=== PATIENT | male | born 1960 | race Caucasian/White ===

== ENCOUNTER 2019-05-05 09:06 | Outpatient (CLI) | payer BC ==
[2019-05-05 09:57] LABS: BASOPHILS % (AUTO) 0.6 %; EOSINOPHILS # (AUTO) 0.1 10^3/uL (0.0-0.7); HGB - HEMOGLOBIN 17.6 g/dL (14.0-18.0); LYMPHOCYTES # (AUTO) 1.6 10^3/uL (1.5-3.5); MEAN CORPUSCULAR HEMOGLOBIN 29.3 pg (27.0-31.0); MEAN CORPUSCULAR HGB CONC 34.1 g/dL (32.0-36.0); MEAN CORPUSCULAR VOLUME 85.9 fL (80.0-94.0); MEAN PLATELET VOLUME 10.9 fL (7.4-11.4); MONOCYTES # (AUTO) 0.4 10^3/uL (0.0-1.0); MONOCYTES % (AUTO) 6.3 %; NEUTROPHILS # (AUTO) 4.1 10^3/uL (1.5-6.6); NEUTROPHILS % (AUTO) 65.6 %; PLT - PLATELET COUNT 172 10^3/uL (130-450); RED BLOOD COUNT 6.01 10^6/uL (4.70-6.10); RED CELL DISTRIBUTION WIDTH 12.8 % (12.0-15.0); WHITE BLOOD COUNT 6.2 x10^3/uL (4.8-10.8)
[2019-05-05 10:17] LABS: CALCIUM 8.9 mg/dL (8.5-10.3); CREATININE 0.7 mg/dL (0.6-1.2)
[2019-05-05 10:18] LABS: HB2 TOTAL 18.7 g/dL; HEMOGLOBIN A1C 1.84 g/dL; HEMOGLOBIN A1C % 11.2 % (4.6-6.2)
== END 2019-05-05 09:07 | disposition home or self-care (01) ==
LOC: LAB 09:06
PROVIDERS: ATTEND Orthopaedic Surgery Orthopaedic Surgery of the Spine
DX: Z01.812 Encounter for preprocedural laboratory examination (principal)
CPT/HCPCS: 36415; 80048; 83036; 85025; 93005

== ENCOUNTER 2019-06-25 14:06 | Outpatient (CLI) | payer BC ==
[2019-06-25 14:45] LABS: CALCIUM 9.4 mg/dL (8.5-10.3); CREATININE 0.7 mg/dL (0.6-1.2)
== END 2019-06-25 14:07 | disposition home or self-care (01) ==
LOC: LAB 14:06
PROVIDERS: ATTEND Family Medicine
DX: E11.8 Type 2 diabetes mellitus with unspecified complications (principal)
CPT/HCPCS: 36415; 80048

== ENCOUNTER 2019-07-04 09:07 | Outpatient (CLI) | payer BC ==
[2019-07-04 09:38] LABS: HB2 TOTAL 17.2 g/dL; HEMOGLOBIN A1C 1.3 g/dL; HEMOGLOBIN A1C % 9.1 % (4.6-6.2)
== END 2019-07-04 09:08 | disposition home or self-care (01) ==
LOC: LAB 09:07
PROVIDERS: ATTEND Surgery
DX: Z01.812 Encounter for preprocedural laboratory examination (principal)
CPT/HCPCS: 36415; 83036

== ENCOUNTER 2019-10-28 12:09 | Outpatient (CLI) | payer BC ==
[2019-10-28 16:47] LABS: CALCIUM 9.4 mg/dL (8.5-10.3); CREATININE 0.7 mg/dL (0.6-1.2)
[2019-10-28 16:55] LABS: HB2 TOTAL 15.9 g/dL; HEMOGLOBIN A1C 0.93 g/dL; HEMOGLOBIN A1C % 7.5 % (4.6-6.2)
== END 2019-10-28 23:59 | disposition home or self-care (01) ==
LOC: LAB.WCP 12:09
PROVIDERS: ATTEND Family Medicine
DX: E11.43 Type 2 diabetes mellitus with diabetic autonomic (poly)neuropathy (principal); E11.8 Type 2 diabetes mellitus with unspecified complications
CPT/HCPCS: 36415; 80048; 83036

== ENCOUNTER 2020-08-29 10:29 | Outpatient (CLI) | payer BC ==
[2020-08-29 18:34] LABS: CALCIUM 9.6 mg/dL (8.5-10.3); CREATININE 0.7 mg/dL (0.6-1.2)
[2020-08-29 20:54] LABS: HEMOGLOBIN A1c% 6.6 % (4.27-6.07)
== END 2020-08-29 23:59 | disposition home or self-care (01) ==
LOC: LAB.WCP 10:29
PROVIDERS: ATTEND Family Medicine
DX: I10 Essential (primary) hypertension (principal); E11.43 Type 2 diabetes mellitus with diabetic autonomic (poly)neuropathy; K31.84 Gastroparesis; E11.8 Type 2 diabetes mellitus with unspecified complications
CPT/HCPCS: 36415; 80048; 82043; 82570; 83036

== ENCOUNTER 2021-06-06 08:41 | Day surgery (SDC) | payer BC ==
[2021-06-06 09:11] LABS: BASOPHILS % (AUTO) 0.2 %; EOSINOPHILS % (AUTO) 0.1 %; HCT - HEMATOCRIT 50.5 % (42.0-52.0); HGB - HEMOGLOBIN 16.9 g/dL (14.0-18.0); LYMPHOCYTES # (AUTO) 1.1 10^3/uL (1.5-3.5); LYMPHOCYTES % (AUTO) 11.1 %; MEAN CORPUSCULAR HEMOGLOBIN 28.6 pg (27.0-31.0); MEAN CORPUSCULAR HGB CONC 33.5 g/dL (32.0-36.0); MEAN CORPUSCULAR VOLUME 85.4 fL (80.0-94.0); MEAN PLATELET VOLUME 10.5 fL (7.4-11.4); MONOCYTES # (AUTO) 0.7 10^3/uL (0.0-1.0); MONOCYTES % (AUTO) 6.7 %; NEUTROPHILS # (AUTO) 8.3 10^3/uL (1.5-6.6); NEUTROPHILS % (AUTO) 81.6 %; PLT - PLATELET COUNT 254 10^3/uL (130-450); RED BLOOD COUNT 5.91 10^6/uL (4.70-6.10); RED CELL DISTRIBUTION WIDTH 12.7 % (12.0-15.0); WHITE BLOOD COUNT 10.2 x10^3/uL (4.8-10.8)
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
[2021-06-06 09:31] LABS: ALBUMIN 4.1 g/dL (3.2-5.5); CALCIUM 9.1 mg/dL (8.5-10.3); POTASSIUM 3.8 mmol/L (3.5-5.0); TOTAL PROTEIN 8.1 g/dL (6.7-8.2)
[2021-06-06] MEDS ORDERED: SODIUM CHLORIDE 0.9% 1,000 ML IV STA (09:43)
[2021-06-06] MEDS ORDERED: KETOROLAC 15 MG/ML VIAL IVP STA (09:44)
[2021-06-06] MEDS ORDERED: ONDANSETRON 4 MG/2 ML VIAL IVP STA (09:44)
[2021-06-06] MEDS ORDERED: FAMOTIDINE 20 MG/2 ML VIAL IVP STA (09:44)
[2021-06-06] MEDS ORDERED: IOVERSOL 320 100 ML VIAL IVP ONE ×2 (09:55→12:28)
--- NOTE | 2021-06-06 10:32 | CT Report ---
PROCEDURE: Abdomen/Pelvis W INDICATIONS: upper abd pain and vomiting for 4 days. CONTRAST: IV CONTRAST: Optiray 320 ml: 100 PO CONTRAST: *NO PO CONTRAST TECHNIQUE: After the administration of weight appropriate dose of intravenous contrast, 5 mm thick sections acqu ired from the diaphragms to the symphysis. 5 mm thick coronal and sagittal reformats were acquired. For radiation dose reduction, the following was used: automated exposure control, adjustment of mA and/or kV according to patient size. COMPARISON: 05/19/2013 FINDINGS: Image quality: Excellent. ABDOMEN: Lung bases: Lung bases are clear. Heart size is normal. Small hiatal hernia. Solid organs: Liver and spleen are normal in size and enhancement. Diffusely decreased attenuation o f the liver compatible with hepatic steatosis. Gallbladder wall is hyperemic with findings suggestive of pericholecystic fluid/inflammation. Possible tiny punctate density in the proximal cystic duct/di stal gallbladder neck measuring approximately 2 mm in diameter. This is seen on image 28, series 3. Biliary system is non dilated. Pancreas enhances normally. No adrenal nodules. Kidneys demonstrate normal size and enhancement, without hydronephrosis. Peritoneum and bowel: Bowel loops demonstrate normal wall thickness and caliber. No free fluid or a ir. Normal appendix. Nodes and vessels: No retroperitoneal or mesenteric adenopathy by size criteria. Aorta and inferior vena cava are normal in size. Atherosclerotic calcifications of the abdominal aorta. Miscellaneous: Very small fat-containing umbilical hernia without acute inflammation. PELVIS: Genitourinary: Bladder wall thickness is normal. Miscellaneous: No pelvic adenopathy. Small fat-containing bilateral inguinal hernias without acute i nflammation. Bones: No suspicious bony lesions. No acute vertebral body compression fractures. Postfusion ritter es of the lumbosacral junction at L5-S1. No evidence for acute hardware complication. IMPRESSION: 1. Distended gallbladder with wall thickening/hyperemia and pericholecystic inflammation. Findings ar e suspicious for acute cholecystitis. Possible 2 mm punctate density in the distal common bladder nec k/proximal cystic duct which may represent a gallstone. Consider further characterization with right upper quadrant ultrasound. 2. Hepatic steatosis. 3. Normal appendix. 4. Other chronic findings as above. Reviewed by: Jose Siegel MD on 06/06/2021 10:30 AM PST Approved by: Jose Siegel MD on 06/06/2021 10:30 AM PST Station ID: [id number]
[2021-06-06 11:27] LABS: BILIRUBIN,URINE NEGATIVE (NEGATIVE); CLARITY,URINE CLEAR (CLEAR); GLUCOSE, URINE (UA) 250 mg/dL (NEGATIVE); KETONES,URINE (UA) 15 mg/dL (NEGATIVE); LEUKOCYTE ESTERASE, URINE NEGATIVE (NEGATIVE); NITRITE,URINE NEGATIVE (NEGATIVE); OCCULT BLOOD,URINE NEGATIVE (NEGATIVE); PROTEIN,URINE NEGATIVE (NEGATIVE); UROBILINOGEN,URINE 1 (NORMAL) E.U./dL (NORMAL)
[2021-06-06] MEDS ORDERED: MORPHINE 2 MG/ML CARPUJECT IVP STA (13:22)
[2021-06-06] MEDS ORDERED: DROPERIDOL 5 MG/2 ML VIAL IVP STA (13:22)
--- NOTE | 2021-06-06 14:58 | HISTORY & PHYSICAL EXAMINATION ---
HPI - Admitted From Admitted from: ED - History Obtained From History obtained from: Patient Exam limitations: No limitations - History of Present Illness Pain/Problem Location Description: Intractable right upper quadrant pain with nausea and vomiting Severity at the worst: reports: Severe Pain Quality: reports: Sharp Context-Pain started w/: reports: Rest Timing: reports: Abrupt onset, Constant Duration: reports: Days: (4) Improved with: reports: Nothing Worsened by: reports: Exertion, Inspiration, Eating, Movement, Palpation Associated symptoms: reports: Nausea HPI Comment/Other: 61-year-old gentleman presented to the emergency room with 4 days of intractable right upper quadrant pain associated with nausea.No prior episodes. No known coronary disease.Reports he is very active. PMH/PSH - Past Medical History Cardiovascular: positive: Hypertension Respiratory: positive: None Neuro: positive: None Endocrine/Autoimmune: positive: Type 2 diabetes GI: positive: GERD (Barett's esophagus on prior EGD.) Social & Family Hx - Social History Does the pt smoke?: No Smoking Status: Never smoker Meds/Allgy - Home Medications Home Medications: Ambulatory Orders Medication Instructions Recorded Confirmed Glimepiride 2 mg PO DAILY 06/21/14 06/21/14 Metformin HCl 1,000 mg PO BID 06/21/14 06/21/14 Pravastatin Sodium 40 mg PO DAILY 06/21/14 06/21/14 lisinopriL [Lisinopril] 10 mg PO DAILY 06/21/14 06/21/14 - Allergies Allergies/Adverse Reactions: Allergies Allergy/AdvReac Type Severity Reaction Status Date / Time No Known Drug Allergies Allergy Verified 06/06/21 08:52 Review of Systems - Gastrointestinal Gastrointestinal: reports: Abdominal pain, Nausea, Vomiting - All Other Systems All Other Systems: reports: Reviewed and negative Exam - Vital Signs Reviewed Vital Signs: Yes Vital Signs: Vital Signs x48h Temp Pulse Resp BP Pulse Ox 06/06/21 14:00 75 19 176/97 H 96 06/06/21 12:00 73 20 185/109 H 99 06/06/21 10:52 77 17 197/99 H 98 06/06/21 08:48 36.7 C 87 15 139/84 H 98 - Physical Exam General Appearance: positive: Alert, Moderate distress Eyes Bilateral: positive: Normal inspection, PERRL, EOMI ENT: positive: ENT inspection nml, Pharynx nml, No signs of dehydration Neck: positive: Nml inspection Respiratory: positive: Chest non-tender, No respiratory distress, Breath sounds nml Cardiovascular: positive: Regular rate & rhythm Abdomen: positive: Tenderness, Guarding, Rebound Back: positive: CVA tenderness (R). negative: CVA tenderness (L) Skin: positive: Color nml Extremities: positive: Non-tender Neurologic/Psychiatric: positive: Oriented x3 Results - Lab Results Fish Bones: 06/06/21 09:07 06/06/21 09:07 Other Lab Results: Lab Results x24hrs 06/06/21 06/06/21 06/06/21 Range/Units 11:15 09:07 09:07 WBC (4.8-10.8) x10^3/uL RBC (4.70-6.10) 10^6/uL Hgb (14.0-18.0) g/dL Hct (42.0-52.0) % MCV (80.0-94.0) fL MCH (27.0-31.0) pg MCHC (32.0-36.0) g/dL RDW (12.0-15.0) % Plt Count (130-450) 10^3/uL MPV (7.4-11.4) fL Neut # (Auto) (1.5-6.6) 10^3/uL Lymph # (Auto) (1.5-3.5) 10^3/uL Larue # (Auto) (0.0-1.0) 10^3/uL Eos # (Auto) (0.0-0.7) 10^3/uL Baso # (Auto) (0.0-0.1) 10^3/uL Absolute Nucleated RBC x10^3/uL Nucleated RBC % /100WBC Sodium 135 (135-145) mmol/L Potassium 3.8 (3.5-5.0) mmol/L Chloride 93 L (101-111) mmol/L Carbon Dioxide 29 (21-32) mmol/L Anion Gap 13.0 (6-13) BUN 27 H (6-20) mg/dL Creatinine 1.0 (0.6-1.2) mg/dL Estimated GFR (MDRD) 76 L (>89) Glucose 264 H (70-100) mg/dL Calcium 9.1 (8.5-10.3) mg/dL Magnesium 2.4 (1.7-2.8) mg/dL Total Bilirubin 2.0 H (0.2-1.0) mg/dL AST 20 (10-42) IU/L ALT 27 (10-60) IU/L Alkaline Phosphatase 61 (42-121) IU/L Total Protein 8.1 (6.7-8.2) g/dL Albumin 4.1 (3.2-5.5) g/dL Globulin 4.0 (2.1-4.2) g/dL Albumin/Globulin Ratio 1.0 (1.0-2.2) Lipase 30 (22-51) U/L Urine Color YELLOW Urine Clarity CLEAR (CLEAR) Urine pH 7.0 (5.0-7.5) PH Ur Specific [place] <=1.005 (1.002-1.030) Urine Protein NEGATIVE (NEGATIVE) mg/dL Urine Glucose (UA) 250 H (NEGATIVE) mg/dL Urine Ketones 15 H (NEGATIVE) mg/dL Urine Occult Blood NEGATIVE (NEGATIVE) Urine Nitrite NEGATIVE (NEGATIVE) Urine Bilirubin NEGATIVE (NEGATIVE) Urine Urobilinogen 1 (NORMAL) (NORMAL) E.U./dL Ur Leukocyte Esterase NEGATIVE (NEGATIVE) Ur Microscopic Review NOT INDICATED Urine Culture Comments NOT INDICATED 06/06/21 Range/Units 09:07 WBC 10.2 (4.8-10.8) x10^3/uL RBC 5.91 (4.70-6.10) 10^6/uL Hgb 16.9 (14.0-18.0) g/dL Hct 50.5 (42.0-52.0) % MCV 85.4 (80.0-94.0) fL MCH 28.6 (27.0-31.0) pg MCHC 33.5 (32.0-36.0) g/dL RDW 12.7 (12.0-15.0) % Plt Count 254 (130-450) 10^3/uL MPV 10.5 (7.4-11.4) fL Neut # (Auto) 8.3 H (1.5-6.6) 10^3/uL Lymph # (Auto) 1.1 L (1.5-3.5) 10^3/uL Larue # (Auto) 0.7 (0.0-1.0) 10^3/uL Eos # (Auto) 0.0 (0.0-0.7) 10^3/uL Baso # (Auto) 0.0 (0.0-0.1) 10^3/uL Absolute Nucleated RBC 0.00 x10^3/uL Nucleated RBC % 0.0 /100WBC Sodium (135-145) mmol/L Potassium (3.5-5.0) mmol/L Chloride (101-111) mmol/L Carbon Dioxide (21-32) mmol/L Anion Gap (6-13) BUN (6-20) mg/dL Creatinine (0.6-1.2) mg/dL Estimated GFR (MDRD) (>89) Glucose (70-100) mg/dL Calcium (8.5-10.3) mg/dL Magnesium (1.7-2.8) mg/dL Total Bilirubin (0.2-1.0) mg/dL AST (10-42) IU/L ALT (10-60) IU/L Alkaline Phosphatase (42-121) IU/L Total Protein (6.7-8.2) g/dL Albumin (3.2-5.5) g/dL Globulin (2.1-4.2) g/dL Albumin/Globulin Ratio (1.0-2.2) Lipase (22-51) U/L Urine Color Urine Clarity (CLEAR) Urine pH (5.0-7.5) PH Ur Specific [place] (1.002-1.030) Urine Protein (NEGATIVE) mg/dL Urine Glucose (UA) (NEGATIVE) mg/dL Urine Ketones (NEGATIVE) mg/dL Urine Occult Blood (NEGATIVE) Urine Nitrite (NEGATIVE) Urine Bilirubin (NEGATIVE) Urine Urobilinogen (NORMAL) E.U./dL Ur Leukocyte Esterase (NEGATIVE) Ur Microscopic Review Urine Culture Comments - Diagnostic Imaging Results Diagnostic Imaging Results Comments: Final Report PT NAME: TAYLER YOUNG MR#: [id number] REG ER/ED AGE: 61 CI DT/TM: 06/06/21 PCP: Cleveland Reyna MD - [place] : 1960 ATT: SEX: M ORD: Puneet Garcia MD EXAM: [id number] CT/ABPEW ([id number]) PROCEDURE: Abdomen/Pelvis W INDICATIONS: upper abd pain and vomiting for 4 days. CONTRAST: IV CONTRAST: Optiray 320 ml: 100 PO CONTRAST: *NO PO CONTRAST TECHNIQUE: After the administration of weight appropriate dose of intravenous contrast, 5 mm thick sections acquired from the diaphragms to the symphysis. 5 mm thick coronal and sagittal reformats were acquired. For radiation dose reduction, the following was used: automated exposure control, adjustment of mA and/or kV according to patient size. COMPARISON: 05/19/2013 FINDINGS: Image quality: Excellent. ABDOMEN: Lung bases: Lung bases are clear. Heart size is normal. Small hiatal hernia. Solid organs: Liver and spleen are normal in size and enhancement. Diffusely decreased attenuation of the liver compatible with hepatic steatosis. Gallbladder wall is hyperemic with findings suggestive of pericholecystic fluid/inflammation. Possible tiny punctate density in the proximal cystic duct/distal gallbladder neck measuring approximately 2 mm in diameter. T his is seen on image 28, series 3. Biliary system is non dilated. Pancreas enhances normally. No ad renal nodules. Kidneys demonstrate normal size and enhancement, without hydronephrosis. Peritoneum and bowel: Bowel loops demonstrate normal wall thickness and caliber. No free fluid or air. Normal appendix. Nodes and vessels: No retroperitoneal or mesenteric adenopathy by size criteria. Aorta and inferior vena cava are normal in size. Atherosclerotic calcifications of the abdominal aorta. Miscellaneous: Very small fat-containing umbilical hernia without acute inflammation. PELVIS: Genitourinary: Bladder wall thickness is normal. Miscellaneous: No pelvic adenopathy. Small fat-containing bilateral inguinal hernias without acute inflammation. Bones: No suspicious bony lesions. No acute vertebral body compression fractures. Postfusion changes of the lumbosacral junction at L5-S1. No evidence for acute hardware complication. IMPRESSION: 1. Distended gallbladder with wall thickening/hyperemia and pericholecystic inflammation. Findings are suspicious for acute cholecystitis. Possible 2 mm punctate density in the distal common bladder neck/proximal cystic duct which may represent a gallstone. Consider further characterization with right upper quadrant ultrasound. 2. Hepatic steatosis. 3. Normal appendix. 4. Other chronic findings as above. Reviewed by: Jose Siegel MD on 06/06/2021 10:30 AM PST Approved by: Jose Siegel MD on 06/06/2021 10:30 AM PST Impression/Plan - Problem List Problem List: Acute cholecystitis in the setting of a 61-year-old gentleman with mild underlying medical illnesses and comorbidities. We discussed the risks, benefits and, alternatives to cholecystectomy and the patient is expressed a desire to complete the procedure today. Verbal and written consent were obtained in the presence of a nurse witness
[2021-06-06 15:46] LABS: B. PARAPERTUSSIS- RESP PCR PAN NOT DETECTED; B. PERTUSSIS- RESP PCR PANEL NOT DETECTED; C. PNEUMONIAE- RESP PCR PANEL NOT DETECTED; CORONAVIRUS 229E-RESP PCR NOT DETECTED; CORONAVIRUS HKU1-RESP PCR NOT DETECTED; CORONAVIRUS NL63-RESP PCR NOT DETECTED; CORONAVIRUS OC43-RESP PCR NOT DETECTED; HUMAN METAPNEUMOVIRUS NOT DETECTED; INFLUENZA A- RESP PCR PANEL NOT DETECTED; INFLUENZA B - RESP PCR PANEL NOT DETECTED; M. PNEUMONIAE- RESP PCR PANEL NOT DETECTED; PARAINFLUENZA VIRUS 1 NOT DETECTED; PARAINFLUENZA VIRUS 2 NOT DETECTED; PARAINFLUENZA VIRUS 3 NOT DETECTED; PARAINFLUENZA VIRUS 4 NOT DETECTED; RHINOVIRUS/ENTEROVIRUS NOT DETECTED; RSV- RESP PCR PANEL NOT DETECTED; SARS-CoV-2 -RESP PCR PANEL NOT DETECTED
[2021-06-06] MEDS ORDERED: fentaNYL 100 MCG/2 ML VIAL IVP PRN ×2 (15:55→16:20)
[2021-06-06] MEDS ORDERED: ONDANSETRON 4 MG/2 ML VIAL IVP PRN ×3 (15:55→16:26)
[2021-06-06] MEDS ORDERED: HYDROmorphone 0.5 MG/0.5 ML SYRINGE IVP PRN ×2 (15:55→16:20)
[2021-06-06] MEDS ORDERED: METOCLOPRAMIDE 10 MG/2 ML VIAL IVP PRN ×2 (15:55→16:20)
[2021-06-06] MEDS ORDERED: ATROPINE ABBOJECT 1 MG/10 ML SYRINGE IVP PRN ×2 (15:55→16:20)
[2021-06-06] MEDS ORDERED: MORPHINE 2 MG/ML CARPUJECT IVP PRN ×2 (15:55→16:20)
[2021-06-06] MEDS ORDERED: ePHEDrine 50 MG/ML VIAL IVP PRN ×2 (15:55→16:20)
[2021-06-06] MEDS ORDERED: NALOXONE 0.4 MG/ML VIAL IVP PRN ×2 (15:55→16:20)
--- NOTE | 2021-06-06 15:57 | ANESTHESIA ---
Pre-Anesthesia VS, & Labs - Diagnosis acute cholecytitis - Procedure laparscopic cholecystectomy Vital Signs: Temp Pulse Resp BP Pulse Ox 36.7 C 75 19 176/97 H 96 06/06/21 08:48 06/06/21 14:00 06/06/21 14:00 06/06/21 14:00 06/06/21 14:00 Height: 5 ft 11 in Weight (kg): 95.708 kg Body Mass Index: 29.4 BMI Classification: Overweight - NPO >8 hours - Lab Results Current Lab Results: Laboratory Tests 06/06/21 09:07: Magnesium 2.4 06/06/21 09:07: Sodium 135, Potassium 3.8, Chloride 93 L, Carbon Dioxide 29, Anion Gap 13.0, BUN 27 H, Creatinine 1.0, Estimated GFR (MDRD) 76 L, Glucose 264 H, Calcium 9.1, Total Bilirubin 2.0 H, AST 20, ALT 27, Alkaline Phosphatase 61, Total Protein 8.1, Albumin 4.1, Globulin 4.0, Albumin/Globulin Ratio 1.0, Lipase 30 06/06/21 09:07: WBC 10.2, RBC 5.91, Hgb 16.9, Hct 50.5, MCV 85.4, MCH 28.6, MCHC 33.5, RDW 12.7, Plt Count 254, MPV 10.5, Neut # (Auto) 8.3 H, Lymph # (Auto) 1.1 L, [place] # (Auto) 0.7, Eos # (Auto) 0.0, Baso # (Auto) 0.0, Absolute Nucleated RBC 0.00, Nucleated RBC % 0.0 Lab results reviewed: Yes Fish Bones: 06/06/21 09:07 06/06/21 09:07 Home Medications and Allergies Active Medications Atropine Sulfate (Atropine Abboject 1 Mg/10 Ml Syringe) 0.5 mg IVP Q5M PRN PRN Reason: Bradycardia Stop: 06/07/21 15:55 Ephedrine Sulfate (Ephedrine 50 Mg/Ml Vial) 10 mg IVP Q5M PRN PRN Reason: HYPOTENSION Stop: 06/07/21 15:55 Fentanyl (Fentanyl 100 Mcg/2 Ml Vial) 25 - 50 mcg IVP Q5M PRN PRN Reason: BREAKTHROUGH PAIN (2nd Choice) Stop: 06/07/21 15:55 Hydromorphone HCl (Hydromorphone 0.5 Mg/0.5 Ml Syringe) 0.2 - 0.6 mg IVP Q5M PRN PRN Reason: PAIN (First Choice) Stop: 06/07/21 15:55 Lactated Ringer's (Lr) 1,000 mls @ 100 mls/hr IV .Q10H YUE Stop: 06/07/21 01:59 Metoclopramide HCl (Metoclopramide 10 Mg/2 Ml Vial) 10 mg IVP Q6HR PRN PRN Reason: N/V not relieved by Zofran Morphine Sulfate (Morphine 2 Mg/Ml Carpuject) 2 - 4 mg IVP Q5M PRN PRN Reason: PAIN (3rd Choice) Stop: 06/07/21 15:55 Naloxone HCl (Naloxone 0.4 Mg/Ml Vial) 0.1 mg IVP Q2M PRN PRN Reason: RESP RATE <8 Stop: 06/07/21 15:55 Ondansetron HCl (Ondansetron 4 Mg/2 Ml Vial) 4 mg IVP ONCE PRN PRN Reason: N/V (First Choice) Stop: 06/07/21 15:55 Glimepiride 2 mg PO DAILY 06/21/14 Metformin HCl 1,000 mg PO BID 06/21/14 Pravastatin Sodium 40 mg PO DAILY 06/21/14 lisinopriL [Lisinopril] 10 mg PO DAILY 06/21/14 Allergies/Adverse Reactions: Allergies Allergy/AdvReac Type Severity Reaction Status Date / Time No Known Drug Allergies Allergy Verified 06/06/21 08:52 Anes History & Medical History - Anesthetic History Anesthesia Complications: reports: No previous complications Family history of Anesthesia Complications: Denies Family history of Malignant Hyperthermia: Denies - Medical History Cardiovascular: reports: Hypertension Pulmonary: reports: None Gastrointestinal: reports: GERD (Barett's esophagus on prior EGD.) Neuro: reports: None Endocrine/Autoimmune: reports: Type 2 diabetes Smoking Status: Never smoker Exam General: Alert, Oriented x3, Cooperative Dental: WNL Mouth Openin Fingerbreadth Neck Mobility: Normal Mallampati classification: II Thyromental Distance: 4-6 cm Respiratory: Lungs clear, Normal breath sounds, No respiratory distress Cardiovascular: Regular rate Neurological: Normal speech Mental/Cognitive Status: Alert/Oriented X3, Normal for patient Cognitive Status: Within normal limits Plan Anesthesia Type: General Consent for Procedure(s) Verified and Reviewed: Yes Code Status: Attempt Resuscitation ASA classification: 2-Mild systemic disease Is this case an emergency?: Yes
[2021-06-06] MEDS ORDERED: LACTATED RINGERS 1,000 ML IV SCH ×2 (16:00→16:20)
[2021-06-06] MEDS ORDERED: LIDOCAINE 2%-EPI 1:100000 20 ML MDV SUBQ ONE (16:00)
[2021-06-06] MEDS ORDERED: BUPIVACAINE 0.25% PF 30 ML VIAL SUBQ ONE (16:00)
[2021-06-06] MEDS ORDERED: LACTATED RINGERS 1,000 ML IV ONE (16:14)
--- NOTE | 2021-06-06 16:18 | OPERATIVE REPORT ---
Operative Report - General Procedure Date: 06/06/21 Planned Procedure: Cholecystsectomy - laparoscopic or open with indicated procedures Pre-Op Diagnosis: Acute cholecystitis Procedure Performed: Laparoscopic cholecystectomy Post Op Diagnosis: Acute cholecystitis - Procedure Note Primary Surgeon: Gertrude Anesthesia Provider: SAM Baer Anesthesia Technique: General ET tube Pathology: Gall bladder to pathology in formalin IV Fluids (mL): 2,100 Estimated Blood Loss (mL): 150 Findings: Distended and acutely inflammed gall bladder with a short cystic duct Complications: None apparent - Other Other Information/Narrative: After obtaining informed consent the patient is brought to the operating room and placed in the supine position on the operating table. Following successful induction of general endotracheal anesthesia, appropriate padding of all bony prominences, and placement of appropriate monitors, the abdomen was prepped and draped in the standard surgical fashion. A timeout was held per scope protocol. All elements of the surgical safety checklist were followed before, during, and after the procedure. Following infiltration with local anesthetic to create a field block, an incision was created inferior to the umbilicus and carried down through the skin and subcutaneous tissue to reveal the fascia below. 2-0 Vicryl retention suture s were placed on either side of the midline and the abdomen was entered under direct vision using a 15 blade scalpel. A 10 mm blunt Zhou balloon trocar was placed in the abdominal cavity and it was insufflated to 15 mmHg pressure. The patient was placed in reverse Trendelenburg position with the left side rotated toward the floor. A second trocar, 5 mm, was placed in the midepigastrium under direct vision and after anesthetization of the surrounding skin.A third trocar, also 5 mm was placed in the right upper quadrant for retraction of the gallbladder and a fourth 1 just medial to that as a working port as well. The gallbladder was examined and noted to be grossly distended and inflammed. It was adherent to the surrounding structures including the omentum and the right colon. The mesentery was noted to be significantly foreshortened. These structures were carefully dissected free from the surface of the gallbladder using a mixture of blunt and sharp dissection. The fundus of the gallbladder was then grasped and elevated up over the liver revealing the cholecysto hepatoduodenal ligament. The neck of the gallbladder was retracted laterally and the cystic duct and artery were carefully identified. The cystic duct was noted to be quite short before disappearing into a mass of inflammatory. I clipped it distally but was not able to get adequate proximal length to perform a cholangiogram safely. The cystic duct was clipped 3 times proximally and once distally and divided, the cystic artery was clipped twice proximally, once distally, and divided. The gallbladder was then liberated from its bed in the liver using cautery. It was placed in an Endo Catch bag and removed via the umbilical port with a camera in the epigastric position. The camera was replaced in the umbilical position and the abdomen was checked for hemostasis. It was irrigated with warm saline solution and aspirated free of all fluid and particulate matter. The trochars were then removed under direct vision and the abdomen desufflated. The umbilical incision was closed with interrupted Vicryl suture and Monocryl was placed in all of the skin incisions. All sponge, needle, and instrument counts were correct at the conclusion of the case. The patient was allowed awaken from anesthesia without difficulty and taken to the postanesthesia care unit in good condition.
[2021-06-06] MEDS ORDERED: oxyCODONE 5 MG TABLET PO PRN (16:26)
[2021-06-06] MEDS ORDERED: SODIUM CHLORIDE FLUSH 0.9% 10 ML SYRINGE IVP PRN (16:26)
[2021-06-06] MEDS ORDERED: HYDROmorphone 1 MG/ML CARPUJECT IVP PRN (16:26)
--- NOTE | 2021-06-06 16:45 | ANESTHESIA POST OP EVALUATION ---
Anesthesia Post Eval - Post Anesthesia Eval Vitals: Last Vital Signs Temp 37.3 C 06/06/21 16:20 Pulse 97 06/06/21 16:36 Resp 14 06/06/21 16:36 BP 177/92 H 06/06/21 16:36 Pulse Ox 96 06/06/21 16:36 CV Function Including HR & BP: Stable Pain Control: Satisfactory, Additional Therapies Ordered (hanging IV tylenol for transport to floor) Nausea & Vomiting: Negative Mental Status: Baseline Respiratory Status: Airway Patent Hydration Status: Satisfactory Anesthesia Complications: None
[2021-06-06] MEDS: ACETAMINOPHEN 1,000 MG/100 ML 100 ML IV SCH ×2 (16:50→22:40)
[2021-06-06] MEDS ORDERED: PIPERACILLIN/TAZOBACTAM 3.375 GM in SODIUM CHLORIDE 0.9% MINIBAG 100 ML IV ONE (18:00)
[2021-06-06] MEDS: SODIUM CHLORIDE 0.9% 1,000 ML IV SCH (18:02)
[2021-06-06] MEDS: SODIUM CHLORIDE FLUSH 0.9% 10 ML SYRINGE IVP SCH (18:03)
[2021-06-06] MEDS: INSULIN ASPART 300 UNIT/3 ML PEN SUBQ SCH ×2 (18:03→20:57)
[2021-06-06] MEDS: PIPERACILLIN/TAZOBACTAM 3.375 GM in SODIUM CHLORIDE 0.9% MINIBAG 100 ML IV SCH (20:57)
[2021-06-07] MEDS: SODIUM CHLORIDE FLUSH 0.9% 10 ML SYRINGE IVP SCH ×2 (00:30→08:35)
[2021-06-07] MEDS: SODIUM CHLORIDE 0.9% 1,000 ML IV SCH ×2 (04:48→13:11)
[2021-06-07] MEDS: ACETAMINOPHEN 1,000 MG/100 ML 100 ML IV SCH ×2 (04:51→11:38)
[2021-06-07] MEDS: PIPERACILLIN/TAZOBACTAM 3.375 GM in SODIUM CHLORIDE 0.9% MINIBAG 100 ML IV SCH ×2 (05:00→13:11)
[2021-06-07 05:55] LABS: BASOPHILS % (AUTO) 0.2 %; EOSINOPHILS % (AUTO) 0.3 %; HCT - HEMATOCRIT 43.4 % (42.0-52.0); HGB - HEMOGLOBIN 14.5 g/dL (14.0-18.0); LYMPHOCYTES # (AUTO) 1.5 10^3/uL (1.5-3.5); MEAN CORPUSCULAR HGB CONC 33.4 g/dL (32.0-36.0); MEAN CORPUSCULAR VOLUME 86.8 fL (80.0-94.0); MEAN PLATELET VOLUME 10.7 fL (7.4-11.4); MONOCYTES # (AUTO) 0.7 10^3/uL (0.0-1.0); MONOCYTES % (AUTO) 7.9 %; NEUTROPHILS # (AUTO) 6.5 10^3/uL (1.5-6.6); NEUTROPHILS % (AUTO) 74.3 %; PLT - PLATELET COUNT 200 10^3/uL (130-450); RED CELL DISTRIBUTION WIDTH 12.7 % (12.0-15.0); WHITE BLOOD COUNT 8.7 x10^3/uL (4.8-10.8)
[2021-06-07 06:08] LABS: ALBUMIN 3.2 g/dL (3.2-5.5); ALBUMIN/GLOBULIN RATIO 1.1 (1.0-2.2); BILIRUBIN,TOTAL 1.2 mg/dL (0.2-1.0); CALCIUM 7.6 mg/dL (8.5-10.3); CREATININE 0.9 mg/dL (0.6-1.2); POTASSIUM 3.3 mmol/L (3.5-5.0); TOTAL PROTEIN 6.1 g/dL (6.7-8.2)
[2021-06-07] MEDS ORDERED: PANTOPRAZOLE 40 MG TABLET PO SCH (07:00)
[2021-06-07] MEDS: INSULIN ASPART 300 UNIT/3 ML PEN SUBQ SCH ×2 (08:32→11:39)
[2021-06-07] MEDS ORDERED: PRAVASTATIN 40 MG TABLET PO SCH (09:00)
[2021-06-07] MEDS ORDERED: lisinopriL 5 MG TABLET PO SCH (09:00)
[2021-06-07] MEDS ORDERED: DOCUSATE SODIUM 250 MG CAPSULE PO SCH (09:00)
[2021-06-07 11:19] VITALS: BP 140/77
[2021-06-07] MEDS ORDERED: IBUPROFEN 600 MG TABLET PO PRN (12:48)
[2021-06-07] MEDS ORDERED: ACETAMINOPHEN 325 MG TABLET PO PRN (12:48)
[2021-06-07] MEDS ORDERED: oxyCODONE 5 MG TABLET PO PRN (12:48)
[2021-06-07] MEDS ORDERED: ONDANSETRON 4 MG/2 ML VIAL IVP PRN (12:48)
--- NOTE | 2021-06-07 12:48 | PROVIDER PROGRESS NOTE ---
Subjective - Prog Note Date Prog Note Date: 06/07/21 Prog Note Time: 12:46 - Subjective Pt reports feeling: Improved Subjective: Minimal pain and tolerating a regular diet. Denies nausea and wants to go home. Has walked in his room and had bowel function today. Current Medications - Current Medications Current Medications: Active Medications Generic Name Dose Route Start Last Admin Trade Name Freq PRN Reason Stop Dose Admin Baclofen 10 mg 06/07/21 14:00 Baclofen 10 Mg Tablet PO TID YUE Docusate Sodium 250 mg 06/07/21 09:00 06/07/21 08:31 Docusate Sodium 250 Mg Capsule PO 250 mg DAILY YUE Administration Enoxaparin Sodium 40 mg 06/08/21 09:00 Enoxaparin 40 Mg/0.4 Ml Syringe SUBQ DAILY YUE Gabapentin 300 - 600 mg 06/07/21 13:00 Gabapentin 300 Mg Capsule PO QID YUE Glimepiride 4 mg 06/07/21 21:00 Glimepiride 2 Mg Tablet PO BID YUE Hydrochlorothiazide 12.5 mg 06/08/21 09:00 Hydrochlorothiazide 12.5 Mg Capsule PO DAILY YUE Hydromorphone HCl 0.5 mg 06/06/21 16:26 Hydromorphone 1 Mg/Ml Carpuject IVP Q2HR PRN PAIN Sodium Chloride 1,000 mls @ 100 mls/hr 06/06/21 17:00 06/07/21 04:48 Normal Saline 0.9% IV 100 mls/hr .Q10H YUE Administration Acetaminophen 100 mls @ 400 mls/hr 06/06/21 17:00 06/07/21 11:38 Ofirmev IV 400 mls/hr Q6H YUE Administration Piperacillin Sod/Tazobactam 100 mls @ 25 mls/hr 06/06/21 21:00 06/07/21 09:00 Sod 3.375 gm/ Sodium Chloride IV Infused Q8H YUE Infusion Insulin Aspart 1 - 9 unit 06/06/21 17:00 06/07/21 11:39 Insulin Aspart 300 Unit/3 Ml Pen SUBQ 1 unit 0800,1200,1700,2100 YUE Administration Protocol Lisinopril 10 mg 06/07/21 09:00 06/07/21 08:31 Lisinopril 5 Mg Tablet PO 10 mg DAILY YUE Administration Metformin HCl 1,000 mg 06/07/21 17:00 Metformin 500 Mg Tablet PO BIDWM YUE Ondansetron HCl 4 mg 06/06/21 16:26 Ondansetron 4 Mg/2 Ml Vial IVP Q6H PRN Nausea / Vomiting Oxycodone HCl 5 mg 06/06/21 16:26 Oxycodone 5 Mg Tablet PO Q4HR PRN PAIN Pantoprazole Sodium 40 mg 06/07/21 07:00 06/07/21 06:18 Pantoprazole 40 Mg Tablet PO 40 mg QDAC YUE Administration Pravastatin Sodium 40 mg 06/07/21 09:00 06/07/21 08:31 Pravastatin 40 Mg Tablet PO 40 mg DAILY YUE Administration Sodium Chloride 10 ml 06/06/21 17:00 06/07/21 08:35 Sodium Chloride Flush 0.9% 10 Ml Syringe IVP 10 ml 0100,0900,1700 YUE Administration Sodium Chloride 10 ml 06/06/21 16:26 Sodium Chloride Flush 0.9% 10 Ml Syringe IVP PRN PRN NEEDED PER PROVIDER ORDERS Metformin HCl 1,000 mg PO BID 06/21/14 Baclofen [Lioresal] 10 mg PO TID 06/06/21 Gabapentin [Neurontin] 300 - 600 mg PO QID 06/06/21 Glimepiride [Amaryl] 4 mg PO BID 06/06/21 Omeprazole 40 mg PO DAILY 06/06/21 Tadalafil [Cialis] 10 mg PO DAILY PRN 06/06/21 hydroCHLOROthiazide [Hydrodiuril] 12.5 mg PO DAILY 06/06/21 Objective - Vital Signs/Intake & Output Reviewed Vital Signs: Yes Vital Signs: Vital Signs x48h Temp Pulse Resp BP Pulse Ox 06/07/21 11:18 37.1 C 71 18 140/77 H 96 06/07/21 07:50 37.0 C 70 18 142/83 H 98 06/07/21 04:56 36.8 C 70 16 150/88 H 98 Intake & Output: Intake & Output 06/04/21 06/05/21 06/06/21 06/07/21 23:59 23:59 23:59 23:59 Intake Total 2380.00 1630 Balance 2380.00 1630 - Objective General Appearance: positive: No acute distress, Alert Eyes Bilateral: positive: Normal inspection ENT: positive: ENT inspection nml Neck: positive: Nml inspection Respiratory: positive: Chest non-tender, No respiratory distress Cardiovascular: positive: Regular rate & rhythm Abdomen: positive: Nml bowel sounds, Tenderness (Appropriately tender in the post op state) Skin: positive: Color nml Extremities: positive: Non-tender - Lab Results Fish Bones: 06/07/21 05:30 06/07/21 05:30 Other Labs: Lab Results x24hrs 06/07/21 06/07/21 06/07/21 Range/Units 11:06 07:47 05:30 WBC (4.8-10.8) x10^3/uL RBC (4.70-6.10) 10^6/uL Hgb (14.0-18.0) g/dL Hct (42.0-52.0) % MCV (80.0-94.0) fL MCH (27.0-31.0) pg MCHC (32.0-36.0) g/dL RDW (12.0-15.0) % Plt Count (130-450) 10^3/uL MPV (7.4-11.4) fL Neut # (Auto) (1.5-6.6) 10^3/uL Lymph # (Auto) (1.5-3.5) 10^3/uL [place] # (Auto) (0.0-1.0) 10^3/uL Eos # (Auto) (0.0-0.7) 10^3/uL Baso # (Auto) (0.0-0.1) 10^3/uL Absolute Nucleated RBC x10^3/uL Nucleated RBC % /100WBC Sodium 134 L (135-145) mmol/L Potassium 3.3 L (3.5-5.0) mmol/L Chloride 99 L (101-111) mmol/L Carbon Dioxide 25 (21-32) mmol/L Anion Gap 10.0 (6-13) BUN 21 H (6-20) mg/dL Creatinine 0.9 (0.6-1.2) mg/dL Estimated GFR (MDRD) 86 L (>89) Glucose 156 H (70-100) mg/dL POC Whole Bld Glucose 157 H 147 H (70 - 100) mg/dL Calcium 7.6 L (8.5-10.3) mg/dL Total Bilirubin 1.2 H (0.2-1.0) mg/dL AST 67 H (10-42) IU/L ALT 63 H (10-60) IU/L Alkaline Phosphatase 52 (42-121) IU/L Total Protein 6.1 L (6.7-8.2) g/dL Albumin 3.2 (3.2-5.5) g/dL Globulin 2.9 (2.1-4.2) g/dL Albumin/Globulin Ratio 1.1 (1.0-2.2) Nasal Adenovirus (PCR) Nasal B. parapertussis DNA (PCR) Nasal Coronavir 229E PCR Nasal Coronavir HKU1 PCR Nasal Coronavir NL63 PCR Nasal Coronavir OC43 PCR Nasal Enterovir/Rhinovir PCR Nasal Influenza B PCR Nasal Influenza A PCR Nasal Parainfluen 1 PCR Nasal Parainfluen 2 PCR Nasal Parainfluen 3 PCR Nasal Parainfluen 4 PCR Nasal RSV (PCR) Nasal B.pertussis DNA PCR Nasal C.pneumoniae (PCR) [place] Human Metapneumo PCR Nasal M.pneumoniae (PCR) Nasal SARS-CoV-2 (PCR) 06/07/21 06/06/21 06/06/21 Range/Units 05:30 20:35 17:13 WBC 8.7 (4.8-10.8) x10^3/uL RBC 5.00 (4.70-6.10) 10^6/uL Hgb 14.5 (14.0-18.0) g/dL Hct 43.4 (42.0-52.0) % MCV 86.8 (80.0-94.0) fL MCH 29.0 (27.0-31.0) pg MCHC 33.4 (32.0-36.0) g/dL RDW 12.7 (12.0-15.0) % Plt Count 200 (130-450) 10^3/uL MPV 10.7 (7.4-11.4) fL Neut # (Auto) 6.5 (1.5-6.6) 10^3/uL Lymph # (Auto) 1.5 (1.5-3.5) 10^3/uL [place] # (Auto) 0.7 (0.0-1.0) 10^3/uL Eos # (Auto) 0.0 (0.0-0.7) 10^3/uL Baso # (Auto) 0.0 (0.0-0.1) 10^3/uL Absolute Nucleated RBC 0.00 x10^3/uL Nucleated RBC % 0.0 /100WBC Sodium (135-145) mmol/L Potassium (3.5-5.0) mmol/L Chloride (101-111) mmol/L Carbon Dioxide (21-32) mmol/L Anion Gap (6-13) BUN (6-20) mg/dL Creatinine (0.6-1.2) mg/dL Estimated GFR (MDRD) (>89) Glucose (70-100) mg/dL POC Whole Bld Glucose 238 H 226 H (70 - 100) mg/dL Calcium (8.5-10.3) mg/dL Total Bilirubin (0.2-1.0) mg/dL AST (10-42) IU/L ALT (10-60) IU/L Alkaline Phosphatase (42-121) IU/L Total Protein (6.7-8.2) g/dL Albumin (3.2-5.5) g/dL Globulin (2.1-4.2) g/dL Albumin/Globulin Ratio (1.0-2.2) Nasal Adenovirus (PCR) Nasal B. parapertussis DNA (PCR) Nasal Coronavir 229E PCR Nasal Coronavir HKU1 PCR Nasal Coronavir NL63 PCR Nasal Coronavir OC43 PCR Nasal Enterovir/Rhinovir PCR Nasal Influenza B PCR Nasal Influenza A PCR Nasal Parainfluen 1 PCR Nasal Parainfluen 2 PCR Nasal Parainfluen 3 PCR Nasal Parainfluen 4 PCR Nasal RSV (PCR) Nasal B.pertussis DNA PCR Nasal C.pneumoniae (PCR) [place]to Human Metapneumo PCR Nasal M.pneumoniae (PCR) Nasal SARS-CoV-2 (PCR) 06/06/21 Range/Units 13:14 WBC (4.8-10.8) x10^3/uL RBC (4.70-6.10) 10^6/uL Hgb (14.0-18.0) g/dL Hct (42.0-52.0) % MCV (80.0-94.0) fL MCH (27.0-31.0) pg MCHC (32.0-36.0) g/dL RDW (12.0-15.0) % Plt Count (130-450) 10^3/uL MPV (7.4-11.4) fL Neut # (Auto) (1.5-6.6) 10^3/uL Lymph # (Auto) (1.5-3.5) 10^3/uL [place] # (Auto) (0.0-1.0) 10^3/uL Eos # (Auto) (0.0-0.7) 10^3/uL Baso # (Auto) (0.0-0.1) 10^3/uL Absolute Nucleated RBC x10^3/uL Nucleated RBC % /100WBC Sodium (135-145) mmol/L Potassium (3.5-5.0) mmol/L Chloride (101-111) mmol/L Carbon Dioxide (21-32) mmol/L Anion Gap (6-13) BUN (6-20) mg/dL Creatinine (0.6-1.2) mg/dL Estimated GFR (MDRD) (>89) Glucose (70-100) mg/dL POC Whole Bld Glucose (70 - 100) mg/dL Calcium (8.5-10.3) mg/dL Total Bilirubin (0.2-1.0) mg/dL AST (10-42) IU/L ALT (10-60) IU/L Alkaline Phosphatase (42-121) IU/L Total Protein (6.7-8.2) g/dL Albumin (3.2-5.5) g/dL Globulin (2.1-4.2) g/dL Albumin/Globulin Ratio (1.0-2.2) Nasal Adenovirus (PCR) NOT DETECTED Nasal B. parapertussis DNA (PCR) NOT DETECTED Nasal Coronavir 229E PCR NOT DETECTED Nasal Coronavir HKU1 PCR NOT DETECTED Nasal Coronavir NL63 PCR NOT DETECTED Nasal Coronavir OC43 PCR NOT DETECTED Nasal Enterovir/Rhinovir PCR NOT DETECTED Nasal Influenza B PCR NOT DETECTED Nasal Influenza A PCR NOT DETECTED Nasal Parainfluen 1 PCR NOT DETECTED Nasal Parainfluen 2 PCR NOT DETECTED Nasal Parainfluen 3 PCR NOT DETECTED Nasal Parainfluen 4 PCR NOT DETECTED Nasal RSV (PCR) NOT DETECTED Nasal B.pertussis DNA PCR NOT DETECTED Nasal C.pneumoniae (PCR) NOT DETECTED [place] Human Metapneumo PCR NOT DETECTED Nasal M.pneumoniae (PCR) NOT DETECTED Nasal SARS-CoV-2 (PCR) NOT DETECTED ABX Reporting Has patient been on IV antibiotics over the past 48 hours?: Yes Assessment/Plan - Problem List (1) Acute cholecystitis Impression: Resolved. Discharge to home. Follow up with me in 2 weeks for post op visit.
[2021-06-07] MEDS ORDERED: GABAPENTIN 300 MG CAPSULE PO SCH (13:00)
[2021-06-07] MEDS ORDERED: BACLOFEN 10 MG TABLET PO SCH (14:00)
[2021-06-07] MEDS ORDERED: metFORMIN 500 MG TABLET PO SCH (17:00)
[2021-06-07] MEDS ORDERED: GLIMEPIRIDE 2 MG TABLET PO SCH (21:00)
[2021-06-08] MEDS ORDERED: hydroCHLOROthiazide 12.5 MG CAPSULE PO SCH (09:00)
[2021-06-08] MEDS ORDERED: ENOXAPARIN 40 MG/0.4 ML SYRINGE SUBQ SCH (09:00)
== END 2021-06-07 13:13 | disposition home or self-care (01) ==
LOC: ED 08:41 → MS3 16:26 → SDS 16:26
PROVIDERS: ATTEND Surgery
PROC: 0FT44ZZ Resection of Gallbladder, Percutaneous Endoscopic Approach (ICD-10-PCS; principal; 2021-06-06 14:30)
DX: K81.0 Acute cholecystitis (principal); I10 Essential (primary) hypertension; E11.9 Type 2 diabetes mellitus without complications; K21.9 Gastro-esophageal reflux disease without esophagitis; Z20.822 Contact with and (suspected) exposure to COVID-19; Z79.84 Long term (current) use of oral hypoglycemic drugs; Z79.899 Other long term (current) drug therapy
CPT/HCPCS: 0202U; 36415; 47562; 74177; 80053; 81003; 83690; 83735; 85025; 96361; 96374; 96375; 99284; 99285; A9270; J0131; J7120; Q9967; 81001; 87086

== ENCOUNTER 2022-09-17 08:58 | Outpatient (CLI) | payer BC ==
[2022-09-17 09:29] LABS: CALCIUM 10.1 mg/dL (8.5-10.3); CREATININE 0.9 mg/dL (0.6-1.2); POTASSIUM 3.9 mmol/L (3.5-5.0)
[2022-09-17 09:51] LABS: CREATININE,URINE 48.8 mg/dL; MICROALBUM/CREATININE RATIO,UR 20.5 ug/mg (<30.0)
[2022-09-17 13:08] LABS: ESTIMATED AVERAGE GLUCOSE 169 mg/dL (70-100); HEMOGLOBIN A1c% 7.5 % (4.27-6.07)
== END 2022-09-17 08:59 | disposition home or self-care (01) ==
LOC: LAB 08:58
PROVIDERS: ATTEND Family Medicine
DX: I10 Essential (primary) hypertension (principal); E11.8 Type 2 diabetes mellitus with unspecified complications; M54.10 Radiculopathy, site unspecified
CPT/HCPCS: 36415; 80048; 82043; 82570; 83036

== ENCOUNTER 2022-12-07 09:10 | Outpatient (CLI) | payer BC ==
[2022-12-07 09:47] LABS: BASOPHILS # (AUTO) 0.1 10^3/uL (0.0-0.1); BASOPHILS % (AUTO) 0.7 %; EOSINOPHILS # (AUTO) 0.1 10^3/uL (0.0-0.7); EOSINOPHILS % (AUTO) 1.1 %; HCT - HEMATOCRIT 48.4 % (42.0-52.0); LYMPHOCYTES # (AUTO) 1.6 10^3/uL (1.5-3.5); LYMPHOCYTES % (AUTO) 17.5 %; MEAN CORPUSCULAR HEMOGLOBIN 29.1 pg (27.0-31.0); MEAN CORPUSCULAR HGB CONC 33.1 g/dL (32.0-36.0); MEAN PLATELET VOLUME 10.8 fL (7.4-11.4); MONOCYTES # (AUTO) 0.4 10^3/uL (0.0-1.0); MONOCYTES % (AUTO) 4.8 %; NEUTROPHILS # (AUTO) 6.9 10^3/uL (1.5-6.6); NEUTROPHILS % (AUTO) 75.6 %; PLT - PLATELET COUNT 196 10^3/uL (130-450); RED CELL DISTRIBUTION WIDTH 13.1 % (12.0-15.0); WHITE BLOOD COUNT 9.2 x10^3/uL (4.8-10.8)
[2022-12-07 10:04] LABS: ALBUMIN 4.2 g/dL (3.2-5.5); ALBUMIN/GLOBULIN RATIO 1.1 (1.0-2.2); ALKALINE PHOSPHATASE 65 IU/L (42-121); ALT ALANINE AMINOTRANSFERASE 27 IU/L (10-60); AST ASPARTATE AMINOTRANSFERASE 18 IU/L (10-42); BILIRUBIN,TOTAL 1.4 mg/dL (0.2-1.0); BUN - BLOOD UREA NITROGEN 21 mg/dL (6-20); CALCIUM 9.5 mg/dL (8.5-10.3); CARBON DIOXIDE - CO2 28 mmol/L (21-32); CHLORIDE 101 mmol/L (101-111); CHOL/HDL RATIO 3.2 (<5.0); CHOLESTEROL 99 mg/dL; CREATININE 0.9 mg/dL (0.6-1.2); GFR - MDRD 86 (>89); GLUCOSE 166 mg/dL (70-100); HDL CHOLESTEROL 31 mg/dL; LDL CHOLESTEROL,CALCULATED 51 mg/dL; LDL/HDL RATIO 1.6 (<3.6); POTASSIUM 4.4 mmol/L (3.5-5.0); SODIUM 141 mmol/L (135-145); TOTAL PROTEIN 7.9 g/dL (6.7-8.2); TRIGLYCERIDES 85 mg/dL; VLDL CHOLESTEROL 17 mg/dL
[2022-12-07 10:38] LABS: CREATININE,URINE 152.2 mg/dL; MICROALBUM/CREATININE RATIO,UR 9.2 ug/mg (<30.0); MICROALBUMIN,URINE 1.4 mg/dL (0-300.0)
[2022-12-07 11:26] LABS: ESTIMATED AVERAGE GLUCOSE 171 mg/dL (70-100); HEMOGLOBIN A1c% 7.6 % (4.27-6.07)
== END 2022-12-07 09:11 | disposition home or self-care (01) ==
LOC: LAB 09:10
PROVIDERS: ATTEND Family Medicine
DX: E11.8 Type 2 diabetes mellitus with unspecified complications (principal); Z12.5 Encounter for screening for malignant neoplasm of prostate
CPT/HCPCS: 36415; 80053; 80061; 82043; 82570; 83036; 83721; 84153; 85025

== ENCOUNTER 2023-04-04 08:47 | Outpatient (CLI) | payer BC ==
[2023-04-04 09:06] LABS: ESTIMATED AVERAGE GLUCOSE 160 mg/dL (70-100); HEMOGLOBIN A1c% 7.2 % (4.27-6.07)
[2023-04-04 09:12] LABS: CALCIUM 9.8 mg/dL (8.5-10.3); POTASSIUM 3.9 mmol/L (3.5-4.5)
== END 2023-04-04 08:48 | disposition home or self-care (01) ==
LOC: LAB 08:47
PROVIDERS: ATTEND Family Medicine
DX: I10 Essential (primary) hypertension (principal); E11.8 Type 2 diabetes mellitus with unspecified complications
CPT/HCPCS: 36415; 80048; 83036

== ENCOUNTER 2023-05-24 07:16 | Day surgery (SDC) | payer BC ==
[2023-05-24] MEDS ORDERED: LACTATED RINGERS 1,000 ML IV ONE ×2 (07:25→10:25)
[2023-05-24] MEDS ORDERED: PROPOFOL 500 MG/50 ML 500 MG/50 ML VIAL ONE (08:39)
--- NOTE | 2023-05-24 09:30 | ANESTHESIA ---
Pre-Anesthesia VS, & Labs - Diagnosis screening - Procedure colonoscopy Vital Signs: Temp Pulse Resp BP Pulse Ox O2 Flow Rate 36.0 C L 86 16 137/90 H 98 0 05/24/23 07:37 05/24/23 07:37 05/24/23 07:37 05/24/23 07:37 05/24/23 07:37 05/24/23 07:37 Height: 5 ft 11 in Weight (kg): 97 kg Body Mass Index: 29.8 BMI Classification: Overweight - NPO Other (prep as directed, last water at 6am) - Lab Results Current Lab Results: Laboratory Tests 05/24/23 07:50: POC Whole Bld Glucose 111 H Home Medications and Allergies Metformin HCl 1,000 mg PO DAILY 06/21/14 Baclofen [Lioresal] 10 mg PO DAILY 06/06/21 Glimepiride [Amaryl] 4 mg PO DAILY 06/06/21 hydroCHLOROthiazide [Hydrodiuril] 12.5 mg PO DAILY 06/06/21 Allergies/Adverse Reactions: Allergies Allergy/AdvReac Type Severity Reaction Status Date / Time No Known Drug Allergies Allergy Verified 05/23/23 13:38 Anes History & Medical History - Anesthetic History Anesthesia Complications: reports: No previous complications - Medical History Cardiovascular: reports: Hypertension Pulmonary: reports: None Gastrointestinal: reports: GERD Urinary: reports: None Neuro: reports: None Musculoskeletal: reports: Chronic back pain, Other Endocrine/Autoimmune: reports: Type 2 diabetes Skin: reports: None Smoking Status: Never smoker - Surgical History General: reports: Cholecystectomy Orthopedic: reports: Spine surgery Exam General: Alert, Oriented x3, Cooperative Dental: WNL Mouth Opening: Greater than 4 Fingerbreadths Neck Mobility: Normal Mallampati classification: III Respiratory: Lungs clear Cardiovascular: Regular rate, Normal S1, Normal S2 Plan Anesthesia Type: Total IV Consent for Procedure(s) Verified and Reviewed: Yes Code Status: Attempt Resuscitation ASA classification: 2-Mild systemic disease Is this case an emergency?: No
[2023-05-24 10:31] VITALS: BP 98/68
[2023-05-24 11:09] VITALS: O2SAT 97
--- NOTE | 2023-05-24 14:17 | ANESTHESIA POST OP EVALUATION ---
Anesthesia Post Eval - Post Anesthesia Eval Vitals: Last Vital Signs Temp 36.0 C L 05/24/23 10:50 Pulse 76 05/24/23 10:50 Resp 16 05/24/23 10:50 BP 98/68 05/24/23 10:50 Pulse Ox 97 05/24/23 10:50 O2 Flow Rate 0 05/24/23 07:37 CV Function Including HR & BP: Stable Pain Control: Satisfactory Nausea & Vomiting: Negative Mental Status: Baseline Respiratory Status: Airway Patent Hydration Status: Satisfactory Anesthesia Complications: None
== END 2023-05-24 07:17 | disposition home or self-care (01) ==
LOC: SDS 07:16
PROVIDERS: ATTEND Surgery
DX: Z12.11 Encounter for screening for malignant neoplasm of colon (principal); E11.9 Type 2 diabetes mellitus without complications; Z79.84 Long term (current) use of oral hypoglycemic drugs
CPT/HCPCS: 45378; J7120

== ENCOUNTER 2023-10-25 08:13 | Outpatient (CLI) | payer BC ==
[2023-10-25 08:35] LABS: CALCIUM 9.8 mg/dL (8.5-10.3); CREATININE 1.1 mg/dL (0.6-1.3)
[2023-10-25 09:48] LABS: ESTIMATED AVERAGE GLUCOSE 169 mg/dL (70-100); HEMOGLOBIN A1c% 7.5 % (4.27-6.07)
== END 2023-10-25 08:14 | disposition home or self-care (01) ==
LOC: LAB 08:13
PROVIDERS: ATTEND Family Medicine
DX: E11.65 Type 2 diabetes mellitus with hyperglycemia (principal)
CPT/HCPCS: 36415; 80048; 83036

== ENCOUNTER 2024-04-10 08:38 | Outpatient (CLI) | payer BC ==
[2024-04-10 08:56] LABS: BASOPHILS # (AUTO) 0.1 10^3/uL (0.0-0.1); BASOPHILS % (AUTO) 0.9 %; EOSINOPHILS # (AUTO) 0.1 10^3/uL (0.0-0.7); EOSINOPHILS % (AUTO) 0.9 %; HCT - HEMATOCRIT 54.3 % (42.0-52.0); HGB - HEMOGLOBIN 17.4 g/dL (14.0-18.0); LYMPHOCYTES # (AUTO) 1.6 10^3/uL (1.5-3.5); LYMPHOCYTES % (AUTO) 21.2 %; MEAN CORPUSCULAR HEMOGLOBIN 28.6 pg (27.0-31.0); MEAN CORPUSCULAR VOLUME 89.2 fL (80.0-94.0); MEAN PLATELET VOLUME 10.6 fL (7.4-11.4); MONOCYTES # (AUTO) 0.4 10^3/uL (0.0-1.0); MONOCYTES % (AUTO) 5.6 %; NEUTROPHILS # (AUTO) 5.3 10^3/uL (1.5-6.6); NEUTROPHILS % (AUTO) 71.1 %; PLT - PLATELET COUNT 183 10^3/uL (130-450); RED BLOOD COUNT 6.09 10^6/uL (4.70-6.10); WHITE BLOOD COUNT 7.5 x10^3/uL (4.8-10.8)
[2024-04-10 09:12] LABS: ALBUMIN 4.5 g/dL (3.2-5.5); ALBUMIN/GLOBULIN RATIO 1.6 (1.0-2.2); ALKALINE PHOSPHATASE 76 IU/L (42-121); ALT ALANINE AMINOTRANSFERASE 30 IU/L (10-60); AST ASPARTATE AMINOTRANSFERASE 20 IU/L (10-42); BILIRUBIN,TOTAL 1.7 mg/dL (0.2-1.0); BUN - BLOOD UREA NITROGEN 18 mg/dL (6-20); CALCIUM 9.8 mg/dL (8.5-10.3); CARBON DIOXIDE - CO2 29 mmol/L (21-32); CHLORIDE 101 mmol/L (101-111); CHOL/HDL RATIO 3.5 (<5.0); CHOLESTEROL 129 mg/dL; CREATININE 0.9 mg/dL (0.6-1.3); GFR - MDRD 85 (>89); GLUCOSE 107 mg/dL (74-104); HDL CHOLESTEROL 37 mg/dL; LDL CHOLESTEROL,CALCULATED 61 mg/dL; LDL/HDL RATIO 1.6 (<3.6); POTASSIUM 4.2 mmol/L (3.5-4.5); SODIUM 138 mmol/L (135-145); TOTAL PROTEIN 7.4 g/dL (6.4-8.9); TRIGLYCERIDES 153 mg/dL; VLDL CHOLESTEROL 31 mg/dL
[2024-04-10 09:13] LABS: CREATININE,URINE 48.7 mg/dL; MICROALBUM/CREATININE RATIO,UR 16.4 ug/mg (<30.0); MICROALBUMIN,URINE 0.8 mg/dL
[2024-04-10 09:27] LABS: THYROID STIMULATING HORMONE 1.58 uIU/mL (0.34-5.60)
[2024-04-10 09:38] LABS: ESTIMATED AVERAGE GLUCOSE 166 mg/dL (70-100); HEMOGLOBIN A1c% 7.4 % (4.27-6.07)
== END 2024-04-10 08:39 | disposition home or self-care (01) ==
LOC: LAB 08:38
PROVIDERS: ATTEND Family Medicine
DX: I10 Essential (primary) hypertension (principal); E11.65 Type 2 diabetes mellitus with hyperglycemia; K22.70 Barrett's esophagus without dysplasia; Z12.5 Encounter for screening for malignant neoplasm of prostate
CPT/HCPCS: 36415; 80053; 80061; 82043; 82570; 83036; 83721; 84153; 84443; 85025